=== PATIENT | male | born 1960 | race Caucasian/White ===

== ENCOUNTER 2019-02-28 10:15 | Emergency (ER) | payer OTHER ==
[2019-02-28] MEDS ORDERED: ACETAMINOPHEN 325 MG TABLET PO ONE (11:09)
[2019-02-28] MEDS ORDERED: LISINOPRIL 10 MG TABLET PO ONE (11:09)
--- NOTE | 2019-02-28 11:11 | ER Document Report ---
ED Medical Screen (RME) - General Chief Complaint: High Blood Pressure Stated Complaint: HIGH BLOOD PRESSURE Time Seen by Provider: 02/28/19 11:06 - HPI Notes: 02/28/19 11:09 Patient is a 59-year-old male with a history of hypertension who presents complaining of having elevated blood pressure and a mild headache. Patient states that the headache began about an hour ago and is not the worst headache of his life and did not start as a thunderclap. Patient was supposed to have a doctor's appointment today for his high blood pressure, but that was canceled and he ran out of his medicine a week ago. He is otherwise feeling well. Denies drug allergies. No fever, chest pain, shortness breath, abdominal pain. I have treated and performed a rapid initial assessment of this patient. A comprehensive ED assessment and evaluation of the patient, analysis of test results and completion of medical decision making process will be conducted by additional ED providers. PHYSICAL EXAMINATION: GENERAL: Well-appearing, well-nourished and in no acute distress. A&Ox4. Answers questions appropriately. Neuro: Cranial nerves grossly intact. Heart: RRR - Related Data Allergies/Adverse Reactions: No Known Allergies Allergy (Unverified 02/28/19 11:03) Physical Exam - Vital signs Vitals: Temp Pulse Resp BP Pulse Ox 97.9 F 65 20 172/111 H 97 02/28/19 11:00 02/28/19 11:00 02/28/19 11:00 02/28/19 11:00 02/28/19 11:00 Course - Vital Signs Vital signs: Temp Pulse Resp BP Pulse Ox 97.9 F 65 20 172/111 H 97 02/28/19 11:00 02/28/19 11:00 02/28/19 11:00 02/28/19 11:00 02/28/19 11:00
[2019-02-28 11:48] LABS: ABSOLUTE EOSINOPHILS # (AUTO) 0.2 10^3/uL (0.0-0.6); ABSOLUTE LYMPHOCYTES (AUTO) 1.7 10^3/uL (0.5-4.7); ABSOLUTE MONOCYTES (AUTO) 0.6 10^3/uL (0.1-1.4); ABSOLUTE NEUT (AUTO) 3.4 10^3/uL (1.7-8.2); BASOPHILS % (AUTO) 0.8 % (0-2); EOSINOPHILS % (AUTO) 2.8 % (0-6); HEMATOCRIT 47.3 % (37.9-51.0); HEMOGLOBIN 16.3 g/dL (13.5-17.0); LYMPHOCYTES % (AUTO) 29.7 % (13-45); MEAN CORPUSCULAR HGB CONC 34.5 g/dL (32.0-36.0); MEAN CORPUSCULAR VOLUME 90 fl (80-97); MONOCYTES % (AUTO) 9.6 % (3-13); PLATELET COUNT 183 10^3/uL (150-450); RED BLOOD COUNT 5.27 10^6/uL (4.35-5.55); SEGMENTED NEUTROPHILS % (AUTO) 57.1 % (42-78); TOTAL CELLS COUNTED % (AUTO) 100 %; WHITE BLOOD COUNT 5.9 10^3/uL (4.0-10.5)
[2019-02-28 12:02] LABS: APPEARANCE,URINE CLEAR; BILIRUBIN,URINE NEGATIVE (NEGATIVE); COLOR,URINE YELLOW; GLUCOSE, URINE NEGATIVE (NEGATIVE); KETONES,URINE NEGATIVE (NEGATIVE); LEUKOCYTE ESTERASE,URINE NEGATIVE (NEGATIVE); NITRITE,URINE NEGATIVE (NEGATIVE); PROTEIN,URINE NEGATIVE (NEGATIVE); URINE SPECIFIC GRAVITY 1.017; UROBILINOGEN,URINE NEGATIVE mg/dL (<2.0)
[2019-02-28 12:07] LABS: ALBUMIN 4.8 g/dL (3.5-5.0); ALKALINE PHOSPHATASE 61 U/L (38-126); ANION GAP 10 (5-19); ASPARTATE AMINO TRANSFERASE 29 U/L (17-59); BILIRUBIN,DIRECT 0.2 mg/dL (0.0-0.4); BILIRUBIN,TOTAL 0.5 mg/dL (0.2-1.3); BLOOD UREA NITROGEN 14 mg/dL (7-20); CALCIUM 9.5 mg/dL (8.4-10.2); CARBON DIOXIDE 29 mmol/L (22-30); CHLORIDE 101 mmol/L (98-107); GLUCOSE 82 mg/dL (75-110); POTASSIUM 4.6 mmol/L (3.6-5.0); TOTAL PROTEIN 8.2 g/dL (6.3-8.2)
--- NOTE | 2019-02-28 12:50 | ER Document Report ---
ED General - General Chief Complaint: Headache >24 hrs old Stated Complaint: HIGH BLOOD PRESSURE Time Seen by Provider: 02/28/19 11:06 Notes: CHIEF COMPLAINT: Headache, elevated blood pressure, out of blood pressure medication HPI: 59-year-old male with history of hypertension presenting to the emergency department complaining of a mild frontal headache today. Patient states that this is the type of headache he normally gets when his blood pressure is elevated. States he has been out of his blood pressure medication for 2 weeks. Believes that he takes lisinopril 30 mg daily and also hydrochlorothiazide but does not definitively know the dose. Patient states the headache was not sudden onset or thunderclap in nature. Denies chest pain, denies shortness of breath. States he tried to see a primary care provider today but the appointment was canceled. He is requesting a referral to a primary care provider. ROS: See HPI - all other systems were reviewed and are otherwise negative Constitutional: no fever Eyes: no drainage, no blurred vision ENT: no runny nose, no sore throat Cardiovascular: no chest pain Resp: no SOB, no cough GI: no vomiting, no diarrhea, no abdominal pain : no dysuria Integumentary: no rash Allergy: no hives Musculoskeletal: no extremity pain or swelling Neurological: no numbness/tingling, no weakness, positive headache MEDICATIONS: I agree with the patient medications as charted by the RN. ALLERGIES: I agree with the allergies as charted by the RN. PAST MEDICAL HISTORY/PAST SURGICAL HISTORY: Reviewed and agree as charted by RN. SOCIAL HISTORY: Reviewed and agree as charted by RN. FAMILY HISTORY: No significant familial comorbid conditions directly related to patient complaint EXAM: Reviewed vital signs as charted by RN. CONSTITUTIONAL: Alert and oriented and responds appropriately to questions. Well-appearing; well-nourished HEAD: Normocephalic; atraumatic EYES: PERRL; Conjunctivae clear, sclerae non-icteric ENT: normal nose; no rhinorrhea; moist mucous membranes NECK: Supple without meningismus; non-tender; no cervical lymphadenopathy, no masses CARD: RRR; no murmurs, no clicks, no rubs, no gallops; symmetric distal pulses RESP: Normal chest excursion without splinting or tachypnea; breath sounds clear and equal bilaterally; no wheezes, no rhonchi, no rales, pulse oximetry ABD/GI: Normal bowel sounds; non-distended; soft, non-tender, no rebound, no guarding; no palpable organomegaly or masses. BACK: The back appears normal and is non-tender to palpation, there is no CVA tenderness EXT: Normal ROM in all joints; non-tender to palpation; no cyanosis, no effus ions, no edema SKIN: Normal color for age and race; warm; dry; good turgor; no acute lesions noted NEURO: Moves all extremities equally; Motor and sensory function intact PSYCH: The patient's mood and manner are appropriate. Grooming and personal hygiene are appropriate. MDM: 59-year-old male presenting to the emergency department for evaluation of frontal headache in the setting of high blood pressure. Headache was not thunderclap in onset, he states this is his typical headache. I discussed this at length with him. He declined CT imaging, is not concerned about intracranial bleeding. Patient was given a dose of his blood pressure medication here. I will prescribe a month of his blood pressure medications for him. Will refer to medical consumer affairs director for follow-up. Patient's lab work does not show acute emergent abnormalities TRAVEL OUTSIDE OF THE [place] IN LAST 30 DAYS: No - Related Data Allergies/Adverse Reactions: No Known Allergies Allergy (Unverified 02/28/19 11:03) Home Medications: lisinopril Past Medical History - Social History Smoking Status: Current Every Day Smoker Chew tobacco use (# tins/day): Yes Frequency of alcohol use: Occasional Drug Abuse: None Family History: Reviewed & Not Pertinent Patient has suicidal ideation: No Patient has homicidal ideation: No - Past Medical History Cardiac Medical History: Reports: Hx Hypertension Physical Exam - Vital signs Vitals: Temp Pulse Resp BP Pulse Ox 97.9 F 65 20 172/111 H 97 02/28/19 11:00 02/28/19 11:00 02/28/19 11:00 02/28/19 11:00 02/28/19 11:00 Course - Vital Signs Vital signs: Temp Pulse Resp BP Pulse Ox 97.9 F 65 20 172/111 H 97 02/28/19 11:00 02/28/19 11:00 02/28/19 11:00 02/28/19 11:00 02/28/19 11:00 - Laboratory Result Diagrams: 02/28/19 11:34 02/28/19 11:34 Laboratory results interpreted by me: 02/28/19 11:34 Urine Blood SMALL H Discharge - Discharge Clinical Impression: Medication refill HTN (hypertension) Qualifiers: Hypertension type: essential hypertension Qualified Code(s): I10 - Essential (primary) hypertension Headache Qualifiers: Headache type: unspecified Headache chronicity pattern: acute headache Intractability: not intractable Qualified Code(s): R51 - Headache Condition: Stable Disposition: HOME, SELF-CARE Additional Instructions: Take the blood pressure medications as prescribed. Follow-up with primary care provider for reevaluation and refills. Return for worsening headache or other concerns as discussed Prescriptions: Hydrochlorothiazide [Hydrodiuril 12.5 mg Tablet] 12.5 mg PO QAM #30 capsule Lisinopril [Prinivil 30 mg Tablet] 30 mg PO DAILY #30 tablet Referrals: MARLYN EUBANKS MD [ACTIVE STAFF] - Follow up as needed
[2019-02-28 13:22] VITALS: BP 165/94
== END 2019-02-28 13:23 | disposition home or self-care (01) ==
LOC: ER 10:15
DX: I10 Essential (primary) hypertension (principal); Z76.0 Encounter for issue of repeat prescription; R51 Headache; F17.200 Nicotine dependence, unspecified, uncomplicated
CPT/HCPCS: 36415; 80053; 81001; 85025; 99284

== ENCOUNTER 2019-03-26 12:56 | Emergency (ER) | payer OTHER ==
--- NOTE | 2019-03-26 13:42 | ER Document Report ---
ED Medical Screen (RME) - General Chief Complaint: Blood Pressure Problem Stated Complaint: BLOOD PRESSURE PROBLEM Time Seen by Provider: 03/26/19 13:32 Mode of Arrival: Ambulatory Information source: Patient Notes: Patient presents complaining of needing a refill of blood pressure medication. Patient was here less than a month ago and was given a prescription for antihypertensive medication. Patient states that the medicine was not bringing his blood pressure down so he was doubling up on the medicine and ran out of the medicine sooner than expected. Patient does not have insurance and does not have a primary doctor. Patient does report low back pain and dark urine. I have greeted and performed a rapid initial assessment of this patient. A comprehensive ED assessment and evaluation of the patient, analysis of test results and completion of the medical decision making process will be conducted by additional ED providers. TRAVEL OUTSIDE OF THE [place] IN LAST 30 DAYS: No - Related Data Allergies/Adverse Reactions: No Known Allergies Allergy (Unverified 02/28/19 11:03) Home Medications: Lisinopril. HCTZ Past Medical History - Past Medical History Cardiac Medical History: Reports: Hx Hypertension Physical Exam - Vital signs Vitals: Temp Pulse Resp BP Pulse Ox 97.7 F 66 16 145/95 H 98 03/26/19 13:31 03/26/19 13:31 03/26/19 13:31 03/26/19 13:31 03/26/19 13:31 - Back Back: CVA tenderness - Bilateral Course - Vital Signs Vital signs: Temp Pulse Resp BP Pulse Ox 97.7 F 66 16 145/95 H 98 03/26/19 13:31 03/26/19 13:31 03/26/19 13:31 03/26/19 13:31 03/26/19 13:31
[2019-03-26 14:08] LABS: ABSOLUTE EOSINOPHILS # (AUTO) 0.2 10^3/uL (0.0-0.6); ABSOLUTE LYMPHOCYTES (AUTO) 2.2 10^3/uL (0.5-4.7); ABSOLUTE MONOCYTES (AUTO) 0.8 10^3/uL (0.1-1.4); ABSOLUTE NEUT (AUTO) 4.2 10^3/uL (1.7-8.2); BASOPHILS % (AUTO) 0.4 % (0-2); EOSINOPHILS % (AUTO) 3.2 % (0-6); HEMATOCRIT 44.3 % (37.9-51.0); HEMOGLOBIN 15.5 g/dL (13.5-17.0); LYMPHOCYTES % (AUTO) 29.4 % (13-45); MEAN CORPUSCULAR HGB CONC 34.9 g/dL (32.0-36.0); MEAN CORPUSCULAR VOLUME 89 fl (80-97); MONOCYTES % (AUTO) 10.7 % (3-13); PLATELET COUNT 165 10^3/uL (150-450); RED BLOOD COUNT 4.99 10^6/uL (4.35-5.55); RED CELL DISTRIBUTION WIDTH 12.8 % (11.5-14.0); SEGMENTED NEUTROPHILS % (AUTO) 56.3 % (42-78); TOTAL CELLS COUNTED % (AUTO) 100 %; WHITE BLOOD COUNT 7.5 10^3/uL (4.0-10.5)
[2019-03-26 14:14] LABS: APPEARANCE,URINE CLEAR; BILIRUBIN,URINE NEGATIVE (NEGATIVE); COLOR,URINE YELLOW; GLUCOSE, URINE NEGATIVE (NEGATIVE); KETONES,URINE NEGATIVE (NEGATIVE); LEUKOCYTE ESTERASE,URINE NEGATIVE (NEGATIVE); NITRITE,URINE NEGATIVE (NEGATIVE); PROTEIN,URINE NEGATIVE (NEGATIVE); URINE SPECIFIC GRAVITY 1.013; UROBILINOGEN,URINE NEGATIVE mg/dL (<2.0)
[2019-03-26 14:27] LABS: ANION GAP 6 (5-19); BLOOD UREA NITROGEN 14 mg/dL (7-20); CALCIUM 9.3 mg/dL (8.4-10.2); CARBON DIOXIDE 31 mmol/L (22-30); CHLORIDE 100 mmol/L (98-107); GLUCOSE 74 mg/dL (75-110); POTASSIUM 4.6 mmol/L (3.6-5.0)
--- NOTE | 2019-03-26 15:15 | ER Document Report ---
ED Blood Pressure Problem - General Chief Complaint: Blood Pressure Problem Stated Complaint: BLOOD PRESSURE PROBLEM Time Seen by Provider: 03/26/19 13:32 Mode of Arrival: Ambulatory Notes: HPI: 59-year-old male with past medical history of high blood pressure who was out of his blood pressure medications for an extended period of time after he recently moved here. He was restarted on these in the emergency department the end of February secondary to a frontal headache and an elevated blood pressure. He has been taking his medications. Patient denies any blurry vision, headache, neck pain, chest pain, delphine pain, weakness or numbness, lower extremity swelling. He states today he took his last tablet of lisinopril. He states he has an upcoming appointment with the primary care physician. Patient states he had an elevated blood pressure today of 180/100. He again denies any other symptoms. ROS: See HPI All other review of systems reviewed and otherwise negative Reviewed vital signs and nursing note as charted by RN. PHYSICAL EXAM: CONSTITUTIONAL: Alert and oriented and responds appropriately to questions. Well-appearing; well-nourished HEAD: Normocephalic; atraumatic EYES: PERRL; full extraocular range of motion CARD: Regular rate and rhythm; no murmurs; symmetric distal pulses RESP: Normal chest excursion without splinting or tachypnea; breath sounds clear and equal bilaterally; no wheezes, no rhonchi, no rales ABD/GI: Normal bowel sounds; non-distended; soft, non-tender BACK: The back appears normal EXT: No edema SKIN: No acute lesions noted NEURO: CN 2-12 intact; 5/5 bilateral upper and lower extremity strength with sensation intact to light touch PSYCH: The patient's mood and manner are appropriate. Grooming and personal hygiene are appropriate. TRAVEL OUTSIDE OF THE [place] IN LAST 30 DAYS: No - Related Data Allergies/Adverse Reactions: No Known Allergies Allergy (Unverified 02/28/19 11:03) Home Medications: Lisinopril. HCTZ Past Medical History - General Information source: Patient - Social History Smoking Status: Current Every Day Smoker Family History: Reviewed & Not Pertinent Patient has suicidal ideation: No Patient has homicidal ideation: No - Past Medical History Cardiac Medical History: Reports: Hx Hypertension Physical Exam - Vital signs Vitals: Temp Pulse Resp BP Pulse Ox 97.7 F 66 16 145/95 H 98 02/09/20 13:31 03/26/19 13:31 03/26/19 13:31 03/26/19 13:31 03/26/19 13:31 Course - Re-evaluation Re-evalutation: 03/26/19 15:15 Given the history and physical examination with an asymptomatic elevated blood pressure, recently started on medications, a chemistry was reordered to check the patient's creatinine potassium level. Chemistry as recorded. Patient still symptom-free. Blood pressure recorded here improved from the home levels. I will rewrite the patient's prescription for lisinopril and increase his hydrochlorothiazide from 12.5 daily to 25. Strict return precautions have been explained. - Vital Signs Vital signs: Temp Pulse Resp BP Pulse Ox 97.7 F 66 16 145/95 H 98 03/26/19 13:31 03/26/19 13:31 03/26/19 13:31 03/26/19 13:31 03/26/19 13:31 - Laboratory Result Diagrams: 03/26/19 13:45 03/26/19 13:45 Laboratory results interpreted by me: 03/26/19 03/26/19 13:45 13:45 Carbon Dioxide 31 H Glucose 74 L Urine Blood SMALL H Discharge - Discharge Clinical Impression: High blood pressure Qualifiers: Hypertension type: unspecified Qualified Code(s): I10 - Essential (primary) hypertension Condition: Good Disposition: HOME, SELF-CARE Additional Instructions: Come back immediately for any headache, blurry vision, fevers, vomiting, weakness or numbness, or any other acute problems. Please make sure that you follow-up with the primary care physician as we have discussed as a schedule. Continue to take your blood pressure medications as directed. Prescriptions: Hydrochlorothiazide [Hydrodiuril 25 mg Tablet] 25 mg PO QAM #30 tablet Lisinopril [Zestril] 30 mg PO DAILY #30 tablet
[2019-03-26 15:30] VITALS: BP 147/103
== END 2019-03-26 15:26 | disposition home or self-care (01) ==
LOC: ER 12:56
DX: I10 Essential (primary) hypertension (principal); F17.200 Nicotine dependence, unspecified, uncomplicated
CPT/HCPCS: 36415; 80048; 81001; 85025

== ENCOUNTER 2019-05-25 20:56 | Emergency (ER) | payer OTHER ==
[2019-05-25] MEDS ORDERED: HYDROCHLOROTHIAZIDE 25 MG TABLET PO ONE (23:11)
[2019-05-25] MEDS ORDERED: LISINOPRIL 10 MG TABLET PO ONE (23:11)
--- NOTE | 2019-05-25 23:17 | ER Document Report ---
ED Blood Pressure Problem - General Chief Complaint: High Blood Pressure Stated Complaint: HIGH BLOOD PRESSURE Time Seen by Provider: 05/25/19 23:03 Primary Care Provider: [facility] [Provider Group] - Follow up in 1 week Notes: Patient is a 59-year-old male that comes to the emergency department for chief complaint of having run out of his blood pressure medications. He states he normally takes lisinopril 30 mg and HCTZ 25 mg daily. He states that he has been unable to establish primary care because the clinic he was going to go to closed because of the pandemic. He states he had a headache earlier work but denies headache now, denies chest pain, denies difficulty urinating, denies any other complaints. He denies any other daily medications. He admits to occasional smoking and dip. He denies recreational drugs. TRAVEL OUTSIDE OF THE [place] IN LAST 30 DAYS: No - Related Data Allergies/Adverse Reactions: No Known Allergies Allergy (Verified 05/25/19 21:52) Past Medical History - General Information source: Patient - Social History Smoking Status: Current Some Day Smoker Chew tobacco use (# tins/day): Yes Frequency of alcohol use: Rare Drug Abuse: None Lives with: Family Family History: Reviewed & Not Pertinent Patient has suicidal ideation: No Patient has homicidal ideation: No - Past Medical History Cardiac Medical History: Reports: Hx Hypertension Pulmonary Medical History: Reports: Hx Pneumonia - as a child - Immunizations Immunizations up to date: Yes Hx Diphtheria, Pertussis, Tetanus Vaccination: Yes Review of Systems - Review of Systems Constitutional: No symptoms reported EENT: No symptoms reported Cardiovascular: No symptoms reported Respiratory: No symptoms reported Gastrointestinal: No symptoms reported Genitourinary: No symptoms reported Male Genitourinary: No symptoms reported Musculoskeletal: No symptoms reported Skin: No symptoms reported Hematologic/Lymphatic: No symptoms reported Neurological/Psychological: See HPI Physical Exam - Vital signs Vitals: Temp Pulse Resp BP Pulse Ox 98.2 F 64 16 210/109 H 95 05/25/19 21:02 05/25/19 21:02 05/25/19 21:02 05/25/19 21:02 05/25/19 21:02 - Notes Notes: GENERAL: Alert, interacts well. No acute distress. HEAD: Normocephalic, atraumatic. EYES: Pupils equal, round, and reactive to light. Extraocular movements intact. ENT: Oral mucosa moist, tongue midline. Oropharynx unremarkable. Airway patent. NECK: Full range of motion. Supple. Trachea midline. No lymphadenopathy. LUNGS: Clear to auscultation bilaterally, no wheezes, rales, or rhonchi. No respiratory distress. Non-tender chest wall. HEART: Regular rate and rhythm. No murmur ABDOMEN: Soft, non-tender. Non-distended. Bowel sounds present in all 4 quadrants. GENITOURINARY: Deferred EXTREMITIES: Moves all 4 extremities spontaneously. No edema, normal radial and dorsalis pedis pulses bilaterally. No cyanosis. BACK: no cervical, thoracic, lumbar midline tenderness. No saddle anesthesia, normal distal neurovascular exam. Moves all extremities in full range of motion. NEUROLOGICAL: Alert and oriented x3. Normal speech. Cranial nerves II through XII grossly intact. Strength 5/5 in all extremities. PSYCH: Normal affect, normal mood. SKIN: Warm, dry, normal turgor. No rashes or lesions noted. Course - Re-evaluation Re-evalutation: Patient is noted to be hypertensive here, he is out of his blood pressure medications. Patient has no symptoms here, he is asymptomatic hypertension at this time. He did have a headache earlier but he is neurologically normal and has no additional abnormalities or complaints. Patient is requesting prescriptions, primary care referral to somewhere he can follow-up with. Because of the current pandemic patient was provided with refills for his blood pressure medications along with a different referral for him to follow with. Patient states that he will do so. Discussed return precautions at length. Patient states understanding and agreement. Stable and asymptomatic at time of discharge. - Vital Signs Vital signs: Temp Pulse Resp BP Pulse Ox 97.8 F 54 L 16 157/100 H 99 05/25/19 23:17 05/25/19 23:17 05/25/19 23:17 05/25/19 23:22 05/25/19 23:17 Discharge - Discharge Clinical Impression: Essential hypertension, Has run out of medications Condition: Stable Disposition: HOME, SELF-CARE Additional Instructions: Your blood pressure medications have been refilled. Please take them daily as prescribed. Stop smoking/dip. Follow-up with the primary care referral Return if you worsen including severe headache, visual changes, weakness on one side of your body, inability to urinate, chest pain, or any other concerning symptoms. Prescriptions: Hydrochlorothiazide [Hydrodiuril 25 mg Tablet] 25 mg PO QAM #30 tablet Lisinopril [Zestril] 30 mg PO DAILY #30 tablet Referrals: [facility] [Provider Group] - Follow up in 1 week
[2019-05-25 23:27] VITALS: BP 186/109
== END 2019-05-25 23:25 | disposition home or self-care (01) ==
LOC: ER 20:56
DX: Z76.0 Encounter for issue of repeat prescription (principal); I10 Essential (primary) hypertension; R51 Headache; Z79.899 Other long term (current) drug therapy; F17.290 Nicotine dependence, other tobacco product, uncomplicated
CPT/HCPCS: 99283